=== PATIENT | male | born 1970 | race American Indian/Alaskan Native ===

== ENCOUNTER 2017-03-02 14:10 | Emergency (ER) | payer MEDICAID ==
[2017-03-02 15:16] VITALS: BP 150/97
--- NOTE | 2017-03-02 16:35 | EDM.PDOC ---
Scribed by Xochilt Jules 03/02/17 [id number] for Bharathi Cabrera MD ED HPI GENERAL MEDICAL PROBLEM - General Chief Complaint: ENT Problem Stated Complaint: [id number] BAD EAR ACHE INFECTION IN MOUTH Time Seen by Provider: 03/02/17 16:18 Source of Information: Reports: Patient, RN, RN Notes Reviewed History Limitations: Reports: No Limitations - History of Present Illness INITIAL COMMENTS - FREE TEXT/NARRATIVE: Patient presents with canker sores in mouth and on lips that began one day after waking with fever and chills. No fever or chills since that one episode 4 days ago. Denies sore throat. Location: Reports: Other (mouth and lips) Quality: Reports: Ache Severity: Moderate Improves with: Reports: None Worsens with: Reports: None Associated Symptoms: Reports: No Other Symptoms Oral/Mouth Pain Score (Numeric/FACES): 6 - Related Data Allergies Allergy/AdvReac Type Severity Reaction Status Date / Time No Known Allergies Allergy Verified 04/30/13 14:52 Home Meds: Home Meds . [No Known Home Meds] 04/30/13 [History] Past Medical History - Past Health History Medical/Surgical History: Denies Medical/Surgical History - Past Surgical History GI Surgical History: Reports: Appendectomy Social & Family History - Tobacco Use Smoking Status *Q: Current Every Day Smoker Years of Tobacco use: 20 Packs/Tins Daily: 0.5 Second Hand Smoke Exposure: Yes - Caffeine Use Caffeine Use: Reports: Coffee, Energy Drinks, Soda, Tea - Alcohol Use Days Per Week of Alcohol Use: 0 - Recreational Drug Use Recreational Drug Use: No - Living Situation & Occupation Living situation: Reports: , with Family Occupation: Employed ED ROS ENT - Review of Systems Review Of Systems: ROS reveals no pertinent complaints other than HPI. ED EXAM, ENT - Physical Exam Exam: See Below Exam Limited By: No Limitations General Appearance: Alert, WD/WN, No Apparent Distress Eye Exam: Bilateral Eye: Normal Inspection Ears: Normal External Exam, Normal Canal, Hearing Grossly Normal, Normal TMs Nose: Normal Inspection Mouth/Throat: Other (oral and lower lip apthous ulcers.) Head: Atraumatic, Normocephalic Neck: Full Range of Motion, Other (shoddy cervical lymphadenopathy. No nuchal rigidity.) Respiratory/Chest: No Respiratory Distress, Lungs Clear, Normal Breath Sounds, No Accessory Muscle Use, Chest Non-Tender Cardiovascular: Normal Peripheral Pulses, Regular Rate, Rhythm, No Edema, No Gallop, No JVD, No Murmur, No Rub GI/Abdominal: Normal Bowel Sounds, Soft, Non-Tender, No Organomegaly, No Distention, No Abnormal Bruit, No Mass (Male) Exam: Deferred Rectal (Males) Exam: Deferred Neurological: Alert, Oriented, CN II-XII Intact, Normal Cognition, Normal Gait, Normal Reflexes, No Motor/Sensory Deficits Psychiatric: Normal Affect, Normal Mood Skin: Warm, Dry, Intact, Normal Color, No Rash Course - Vital Signs Last Recorded V/S: Last Vital Signs Temp 36.9 C 03/02/17 15:15 Pulse 110 H 03/02/17 15:15 Resp 16 03/02/17 15:15 BP 150/97 H 03/02/17 15:15 Pulse Ox 97 03/02/17 15:15 Departure - Departure Time of Disposition: 16:19 Disposition: Home, Self-Care 01 Condition: Good Clinical Impression: Gingivostomatitis - Discharge Information Instructions: Primary Herpetic Gingivostomatitis, Pediatric Forms: ED Department Discharge Additional Instructions: RX: Magic Mouthwash. Salt water swish and spit after eating and drinking. Over the counter Ibuprofen 200mg, 3 tablets by mouth every 6 hours as needed for pain and inflammation. Follow in clinic if not improved in 7 days. I have read and agree with the documentation that has been completed regarding this visit. By signing this record, I attest that the documentation was completed in my physical presence and is an accurate record of the encounter.
== END 2017-03-02 16:37 | disposition home or self-care (01) ==
LOC: DL.ED 14:10
DX: K05.10 Chronic gingivitis, plaque induced (principal); K12.0 Recurrent oral aphthae; F17.210 Nicotine dependence, cigarettes, uncomplicated
CPT/HCPCS: 99282

== ENCOUNTER 2019-07-03 06:29 | Emergency (ER) | payer MEDICAID, OTHER ==
[2019-07-03 06:36] VITALS: BP 139/86; PULSE 92
[2019-07-03] MEDS ORDERED: Sodium Chloride 0.9% 10 ML Syringe FLUSH PRN (06:38)
--- NOTE | 2019-07-03 06:43 | EDM.PDOC ---
<Dimple Sanchez - Last Filed: 07/03/19 06:38> ED HPI GENERAL MEDICAL PROBLEM - General Chief Complaint: Lower Extremity Injury/Pain Stated Complaint: AMBULANCE Time Seen by Provider: 07/03/19 06:29 Source of Information: Reports: Patient, EMS, EMS Notes Reviewed, RN, RN Notes Reviewed History Limitations: Reports: No Limitations - History of Present Illness INITIAL COMMENTS - FREE TEXT/NARRATIVE: Patient presents to ER per [facility] ambulance service with complaint of dizziness and throbbing leg pain. Patient states he woke up and felt very dizzy , states he tried to get up and felt his legs had an 8/10 throbbing pain. Patient states this is happened to him in the past. Patient did states this past winter he had an episode similar to this and blacked out. Patient denies any health problems, cardiac history, stroke history. Patient denies taking any medications on a daily basis. Patient admits to being a smoker. Denies chest pains, shortness of breath, and/V/D, fever or chills. Onset: Today, Sudden Bilateral Lower Leg Pain Score (Numeric/FACES): 8 - Related Data Allergies Allergy/AdvReac Type Severity Reaction Status Date / Time No Known Allergies Allergy Verified 07/03/19 06:36 Home Meds: Home Meds . [No Known Home Meds] 04/30/13 [History] Past Medical History - Past Health History Medical/Surgical History: Denies Medical/Surgical History - Past Surgical History GI Surgical History: Reports: Appendectomy Social & Family History - Caffeine Use Caffeine Use: Reports: Coffee, Energy Drinks, Soda, Tea - Living Situation & Occupation Living situation: Reports: , with Family Occupation: Employed Review of Systems - Review of Systems Review Of Systems: Comprehensive ROS is negative, except as noted in HPI. ED EXAM, GENERAL - Physical Exam Exam: See Below Exam Limited By: No Limitations General Appearance: Alert, WD/WN, Mild Distress Eye Exam: Bilateral Eye: EOMI, Normal Inspection Ears: Normal External Exam, Hearing Grossly Normal Nose: Normal Inspection Throat/Mouth: Normal Inspection, Normal Voice, No Airway Compromise Head: Atraumatic, Normocephalic Neck: Normal Inspection, Supple, Non-Tender, Full Range of Motion Respiratory/Chest: No Respiratory Distress, Lungs Clear, Normal Breath Sounds, No Accessory Muscle Use, Chest Non-Tender Cardiovascular: Normal Peripheral Pulses, Regular Rate, Rhythm, No Edema, No Gallop, No JVD, No Murmur, No Rub Peripheral Pulses: 2+: Radial (L), Radial (R) GI/Abdominal: Normal Bowel Sounds, Soft, Non-Tender (Male) Exam: Deferred Rectal (Males) Exam: Deferred Back Exam: Normal Inspection, Full Range of Motion Extremities: Normal Inspection, Non-Tender, No Pedal Edema, Normal Capillary Refill, Leg Pain (8/10 throbbing pain to the legs bilaterally), Limited Range of Motion Neurological: Alert, Oriented, Normal Cognition, Normal Reflexes, No Motor/ Sensory Deficits Psychiatric: Normal Affect, Normal Mood Skin Exam: Warm, Dry, Intact, Normal Color, No Rash Lymphatic: No Adenopathy Course - Vital Signs Last Recorded V/S: Last Vital Signs Temp 99.1 F 07/03/19 06:29 Pulse 92 07/03/19 06:29 Resp 20 07/03/19 06:29 BP 139/86 07/03/19 06:29 Pulse Ox 99 07/03/19 06:29 Orthostatic Blood Pressure [ 133/85 Standing] Orthostatic Blood Pressure [ 131/81 Sitting] Orthostatic Blood Pressure [ 138/84 Supine] - Orders/Labs/Meds Orders: Active Orders 24 hr Category Date Time Status EKG Documentation Completion [RC] STAT Care 07/03/19 06:38 Active Peripheral IV Care [RC] . DIRECTED Care 07/03/19 06:39 Active Chest 1V Frontal [CR] Stat Exams 07/03/19 06:38 Taken DRUG SCREEN URINE BIORAD [URCHEM] Stat Lab 07/03/19 06:39 Ordered Sodium Chloride 0.9% [Saline Flush] Med 07/03/19 06:38 Active 10 ml FLUSH ASDIRECTED PRN Peripheral IV Insertion Adult [OM.PC] Stat Oth 07/03/19 06:38 Ordered Medication Orders Sodium Chloride (Saline Flush) 10 ml FLUSH ASDIRECTED PRN PRN Reason: Keep Vein Open Last Admin: 07/03/19 06:58 Dose: 10 ml Labs: Laboratory Tests 07/03/19 07/03/19 07/03/19 Range/Units 06:42 06:42 06:42 WBC 13.7 H (5.0-10.0) 10^3/uL RBC 4.95 (4.6-6.2) 10^6/uL Hgb 15.2 (14.0-18.0) g/dL Hct 45.7 (40.0-54.0) % MCV 92.3 (80-100) fL MCH 30.7 (27.0-34.0) pg MCHC 33.3 (33.0-35.0) g/dL Plt Count 268 (150-450) 10^3/uL Neut % (Auto) 83.3 H (42.2-75.2) % Lymph % (Auto) 8.6 L (20.5-50.1) % [place] % (Auto) 7.1 (2-8) % Eos % (Auto) 0.9 L (1.0-3.0) % Baso % (Auto) 0.1 (0.0-1.0) % D-Dimer, Quantitative 168 (0-400) ng/mL Sodium 139 (136-145) mmol/L Potassium 3.8 (3.5-5.1) mmol/L Chloride 103 (98-107) mmol/L Carbon Dioxide 31 (21-32) mmol/L Anion Gap 8.8 (7-13) mEq/L BUN 15 (7-18) mg/dL Creatinine 1.07 (0.70-1.30) mg/dL Est Cr Clr Drug Dosing TNP Estimated GFR (MDRD) > 60 BUN/Creatinine Ratio 14.0 (No establ ref range) Glucose 119 H (74-99) mg/dL Calcium 8.3 L (8.5-10.1) mg/dL Magnesium (1.8-2.4) mg/dL Total Bilirubin 0.6 (0.2-1.0) mg/dL AST 54 H (15-37) U/L ALT 123 H (16-63) U/L Alkaline Phosphatase 100 (46-116) U/L Troponin I < 0.017 (0.000-0.056) ng/mL Total Protein 7.6 (6.4-8.2) g/dL Albumin 3.5 (3.4-5.0) g/dL Globulin 4.1 Albumin/Globulin Ratio 0.9 Ethyl Alcohol < 3 (0) mg/dL 07/03/19 Range/Units 06:42 WBC (5.0-10.0) 10^3/uL RBC (4.6-6.2) 10^6/uL Hgb (14.0-18.0) g/dL Hct (40.0-54.0) % MCV (80-100) fL MCH (27.0-34.0) pg MCHC (33.0-35.0) g/dL Plt Count (150-450) 10^3/uL Neut % (Auto) (42.2-75.2) % Lymph % (Auto) (20.5-50.1) % [place] % (Auto) (2-8) % Eos % (Auto) (1.0-3.0) % Baso % (Auto) (0.0-1.0) % D-Dimer, Quantitative (0-400) ng/mL Sodium (136-145) mmol/L Potassium (3.5-5.1) mmol/L Chloride (98-107) mmol/L Carbon Dioxide (21-32) mmol/L Anion Gap (7-13) mEq/L BUN (7-18) mg/dL Creatinine (0.70-1.30) mg/dL Est Cr Clr Drug Dosing Estimated GFR (MDRD) BUN/Creatinine Ratio (No establ ref range) Glucose (74-99) mg/dL Calcium (8.5-10.1) mg/dL Magnesium 2.0 (1.8-2.4) mg/dL Total Bilirubin (0.2-1.0) mg/dL AST (15-37) U/L ALT (16-63) U/L Alkaline Phosphatase (46-116) U/L Troponin I (0.000-0.056) ng/mL Total Protein (6.4-8.2) g/dL Albumin (3.4-5.0) g/dL Globulin Albumin/Globulin Ratio Ethyl Alcohol (0) mg/dL Meds: Medications Generic Name Dose Route Start Last Admin Trade Name Freq PRN Reason Stop Dose Admin Sodium Chloride 10 ml 07/03/19 06:38 07/03/19 06:58 Saline Flush FLUSH 10 ml ASDIRECTED PRN Administration Keep Vein Open Departure - Departure Disposition: Home, Self-Care 01 Clinical Impression: Vasovagal near syncope, Elevated liver enzymes - Discharge Information Instructions: Near-Syncope, [id number], Fatty Liver Disease, Nonalcoholic Fatty Liver Disease Diet Forms: ED Department Discharge Additional Instructions: Follow up in clinic this week for recheck and further evaluation of vasovagal near syncope, and elevated liver enzymes. Sepsis Event Note - Evaluation Sepsis Screening Result: No Definite Risk - Focused Exam Vital Signs: Vital Signs Temp Pulse Resp BP Pulse Ox 07/03/19 06:29 99.1 F 92 20 139/86 99 Date Exam was Performed: 07/03/19 Time Exam was Performed: 06:38 <Bharathi Cabrera - Last Filed: 07/03/19 08:08> ED HPI GENERAL MEDICAL PROBLEM - History of Present Illness INITIAL COMMENTS - FREE TEXT/NARRATIVE: I assumed care of the pt from Dimple Sanchez NP at 0700HR shift change with pt resting comfortably, symptom free, and awaiting lab results. No changes to CC/ HPI, Hx, ROS, or exam as documented by Dimple for this encounter. Pt describes his dizziness as his vision "coning down" with darkness as if he was only able to see through a small hole in a black wall, but he did not completely faint. He also felt hot and flushed when this happened. Social & Family History - Family History Family Medical History: Noncontributory - Tobacco Use Smoking Status *Q: Current Every Day Smoker Tobacco Use Within Last Twelve Months: Cigarettes Review of Systems - Review of Systems Review Of Systems: Comprehensive ROS is negative, except as noted in HPI. ED EXAM, GENERAL - Physical Exam Exam: See Below Exam Limited By: No Limitations General Appearance: Alert, WD/WN, No Apparent Distress Eye Exam: Bilateral Eye: EOMI, Normal Inspection (No nystagmus, no scleral icterus.), PERRL Ears: Normal External Exam, Hearing Grossly Normal Nose: Normal Inspection, Normal Mucosa, No Blood Throat/Mouth: Normal Inspection, Normal Lips, Normal Teeth, Normal Gums, Normal Oropharynx, Normal Voice, No Airway Compromise Head: Atraumatic, Normocephalic Neck: Normal Inspection, Supple, Non-Tender, Full Range of Motion Respiratory/Chest: No Respiratory Distress, Lungs Clear, Normal Breath Sounds, No Accessory Muscle Use, Chest Non-Tender Cardiovascular: Normal Peripheral Pulses, Regular Rate, Rhythm, No Edema, No Gallop, No JVD, No Murmur, No Rub GI/Abdominal: Normal Bowel Sounds, Soft, Non-Tender, No Organomegaly, No Distention, No Abnormal Bruit, No Mass Back Exam: Normal Inspection, Full Range of Motion, NT Extremities: Normal Inspection, Normal Range of Motion, Non-Tender, No Pedal Edema, Normal Capillary Refill. No: Joint Swelling, Arm Pain, Sherine's Sign, Increased Warmth, Mottled, Pallor, Redness Neurological: Alert, Oriented, CN II-XII Intact, Normal Cognition, Normal Gait, No Motor/Sensory Deficits Psychiatric: Normal Affect, Normal Mood Skin Exam: Warm, Dry, Intact, Normal Color, No Rash Lymphatic: No Adenopathy EKG INTERPRETATION EKG Date: 07/03/19 Time: 06:48 Rhythm: NSR Rate (Beats/Min): 95 [place]: Normal P-Wave: Present QRS: Normal ST-T: Normal QT: Normal TX/PQ Interval: Normal TX interval. Comparison: NA - No Prior EKG Course - Radiology Interpretation Free Text/Narrative:: [facility] - [facility] Final Radiology Report Call: [phone] assistance Online chat: [email or web address] Name: KYLER MANN Age: 49Years M Date: 07/03/2019 SSN: -- : [id number] Study: XR CHEST 1 VIEW FRONTAL Requesting Physician: Dimple Sanchez Images: 1 Addl Studies: Provided Clinical History: Contrast: Contrast Medium: Contrast Amount: Contrast Method: CONFIDENTIALITY STATEMENT This report is intended only for use by the referring physician, and only in accordance with law. If you received this in error, call [phone]. Page 1 of 1 PROCEDURE INFORMATION: Exam: XR Chest, 1 View Exam date and time: 07/03/2019 6:58 AM Age: 49 years old Clinical indication: Chest pain TECHNIQUE: Imaging protocol: XR of the chest Views: 1 view. COMPARISON: No relevant prior studies available. FINDINGS: Lungs: No lung consolidation or pulmonary edema. Pleural space: No pleural effusion or pneumothorax. Heart/Mediastinum: The cardiac silhouette is not enlarged. The mediastinal contours are normal. Bones/joints: No acute osseous abnormality. IMPRESSION: No acute abnormality. Thank you for allowing us to participate in the care of your patient. Dictated and Authenticated by: Kyle Renee MD 07/03/2019 7:02 AM Central Time ([place] & [place]) Departure - Departure Time of Disposition: 08:06 Condition: Good - Discharge Information *PRESCRIPTION DRUG MONITORING PROGRAM REVIEWED*: Not Applicable *COPY OF PRESCRIPTION DRUG MONITORING REPORT IN PATIENT EMILIANO: Not Applicable Sepsis Event Note - Focused Exam Date Exam was Performed: 07/03/19 Time Exam was Performed: 08:02
[2019-07-03 07:09] LABS: ANION GAP 8.8 mEq/L (7-13); CHLORIDE,CL 103 mmol/L (98-107); SODIUM,NA 139 mmol/L (136-145)
== END 2019-07-03 08:11 | disposition home or self-care (01) ==
LOC: DL.ED 06:29
DX: R55 Syncope and collapse (principal); R74.8 Abnormal levels of other serum enzymes; M79.604 Pain in right leg; M79.605 Pain in left leg
CPT/HCPCS: 36415; 71045; 80053; 80307; 83735; 84484; 85025; 85379; 93005; 99284-25

== ENCOUNTER 2019-11-18 16:01 | Emergency (ER) | payer MEDICAID, OTHER ==
[2019-11-18 17:26] VITALS: BP 160/94; PULSE 91
[2019-11-18 17:56] LABS: ANION GAP 15.8 mEq/L (7-13); CHLORIDE,CL 106 mmol/L (98-107); SODIUM,NA 141 mmol/L (136-145)
== END 2019-11-18 19:06 | disposition left against medical advice (07) ==
LOC: DL.ED 16:01
DX: Z53.21 Procedure and treatment not carried out due to patient leaving prior to being seen by health care provider (principal)
CPT/HCPCS: 36415; 80053; 83605; 84550; 85025; 87040

== ENCOUNTER 2019-11-21 12:03 | Inpatient (IN) | payer MEDICAID, OTHER ==
[2019-11-21 13:13] LABS: ANION GAP 12.6 mEq/L (7-13); CHLORIDE,CL 97 mmol/L (98-107); SODIUM,NA 135 mmol/L (136-145)
[2019-11-21] MEDS: Sodium Chloride 0.9% 10 ML Syringe FLUSH PRN ×2 (13:16→14:37)
[2019-11-21] MEDS ORDERED: fentaNYL 100 MCG/2 ML SDV IVPUSH ONE (14:22)
[2019-11-21] MEDS ORDERED: cefTRIAXone 1 GM in Sodium Chloride 0.9% 50 ML IV ONE (14:23)
--- NOTE | 2019-11-21 14:26 | CR ---
EXAMINATION: Foot Comp Min 3V Rt SEX: Male AGE: 49 years CLINICAL HISTORY: 49-year-old male one week history bilateral FOOT SWELLING i.e. cellulitis (r/o osteomyelitis). No known trauma. INTERPRETATION: (3 views each foot) 1. Soft tissue swelling (STS) over the dorsum of the right foot. 2. Bilateral pes cavus and large heel spurs (R>L) at the insertion plantar aponeurosis/Achilles tendons. 3. No foreign bodies. No subcutaneous emphysema. No inflammatory periostitis. 4. Prominent os peroneum, bilaterally. 5. Atavistic first cuneiform with early (mild) reactive arthritic changes first metatarsophalangeal joints. CONCLUSION: No plain film evidence of fracture, dislocation or osteomyelitis.
[2019-11-21] MEDS ORDERED: Sodium Chloride 0.9% 1,000 ML IV ONE (14:41)
--- NOTE | 2019-11-21 14:47 | EDM.PDOC ---
ED HPI GENERAL MEDICAL PROBLEM - General Chief Complaint: Lower Extremity Injury/Pain Time Seen by Provider: 11/21/19 13:32 Source of Information: Reports: Patient, EMS, EMS Notes Reviewed, RN, RN Notes Reviewed History Limitations: Reports: No Limitations - History of Present Illness INITIAL COMMENTS - FREE TEXT/NARRATIVE: Patient presents to ER per [place] [facility] with complaint of pain to the feet bilaterally. Patient states the pain began approximately 1 week ago and has progressively gotten worse. Patient denies any trauma to the feet. States he is unable to walk or stand, rates pain 10/10. Patient denies diabetes, or any other health problems. Patient states he was helping his sister about a week ago with some erica, and states it began after that. Denies fever, chills, nausea, vomiting, diarrhea. Onset: Gradual Right Lower Foot Pain Score (Numeric/FACES): 10 - Related Data Allergies Allergy/AdvReac Type Severity Reaction Status Date / Time No Known Allergies Allergy Verified 11/21/19 15:59 Home Meds: Home Meds . [No Known Home Meds] 04/30/13 [History] Past Medical History - Past Health History Medical/Surgical History: Denies Medical/Surgical History HEENT History: Reports: None Cardiovascular History: Reports: None Respiratory History: Reports: None Gastrointestinal History: Reports: None Genitourinary History: Reports: None Musculoskeletal History: Reports: None Neurological History: Reports: None Psychiatric History: Reports: None Endocrine/Metabolic History: Reports: None Hematologic History: Reports: None Immunologic History: Reports: None Oncologic (Cancer) History: Reports: None Dermatologic History: Reports: None - Infectious Disease History Infectious Disease History: Reports: None - Past Surgical History Head Surgeries/Procedures: Reports: None GI Surgical History: Reports: Appendectomy Social & Family History - Family History Family Medical History: Noncontributory - Tobacco Use Smoking Status *Q: Current Every Day Smoker Years of Tobacco use: 20 Packs/Tins Daily: 1 - Caffeine Use Caffeine Use: Reports: Coffee, Energy Drinks, Soda, Tea - Recreational Drug Use Recreational Drug Use: No - Living Situation & Occupation Living situation: Reports: , with Family Occupation: Employed Review of Systems - Review of Systems Review Of Systems: Comprehensive ROS is negative, except as noted in HPI. ED EXAM, GENERAL - Physical Exam Exam: See Below Exam Limited By: No Limitations General Appearance: Alert, WD/WN, Moderate Distress Eye Exam: Bilateral Eye: EOMI, Normal Inspection Ears: Normal External Exam, Hearing Grossly Normal Nose: Normal Inspection Throat/Mouth: Normal Inspection, Normal Voice, No Airway Compromise Head: Atraumatic, Normocephalic Neck: Normal Inspection, Supple, Non-Tender, Full Range of Motion Respiratory/Chest: No Respiratory Distress, Lungs Clear, Normal Breath Sounds, No Accessory Muscle Use, Chest Non-Tender Cardiovascular: Normal Peripheral Pulses, Regular Rate, Rhythm, No Edema, No Gallop, No JVD, No Murmur, No Rub Peripheral Pulses: 1+: Dorsalis Pedis (L), Dorsalis Pedis (R), 2+: Radial (L), Radial (R) GI/Abdominal: Normal Bowel Sounds, Soft, Non-Tender (Male) Exam: Deferred Rectal (Males) Exam: Deferred Back Exam: Normal Inspection, Full Range of Motion, NT Extremities: Pedal Edema (Adderall), Increased Warmth (Feet bilateral), Redness (Feet bilateral), Other (Severe pain to the feet bilaterally) Neurological: Alert, Oriented, CN II-XII Intact, Normal Cognition, No Motor/Sensory Deficits Psychiatric: Anxious Skin Exam: Warm, Dry, Intact, Normal Color, No Rash, Erythema (Bilaterally), Increased Warmth (Feet bilaterally) Lymphatic: No Adenopathy Course - Vital Signs Last Recorded V/S: Last Vital Signs Temp 100.4 F 11/21/19 20:51 Pulse 90 11/21/19 20:51 Resp 16 11/21/19 20:51 BP 144/89 H 11/21/19 20:51 Pulse Ox 97 11/21/19 20:51 - Orders/Labs/Meds Orders: Active Orders 24 hr Category Date Time Status Foot Comp Min 3V Lt [CR] Urgent Exams 11/21/19 13:38 Taken CULTURE BLOOD [BC] Stat Lab 11/21/19 12:59 Received CULTURE BLOOD [BC] Stat Lab 11/21/19 12:59 Received Blood Culture x2 Reflex Set [OM.PC] Stat Oth 11/21/19 12:31 Ordered Peripheral IV Insertion Adult [OM.PC] Stat Oth 11/21/19 12:30 Ordered Medication Orders Acetaminophen (Tylenol) 650 mg PO Q4H PRN PRN Reason: Pain (Mild 1-3)/fever Last Admin: 11/21/19 20:49 Dose: 650 mg Documented by: Admin: 11/21/19 16:24 Dose: 650 mg Documented by: TWAN Hydrocodone Bitart/Acetaminophen ([place] 325-10 Mg) 1 tab PO Q4H PRN PRN Reason: Pain (moderate 4-6) Last Admin: 11/22/19 03:39 Dose: 1 tab Documented by: Admin: 11/21/19 18:16 Dose: 1 tab Documented by: TWAN Docusate Sodium (Colace) 100 mg PO BID PRN PRN Reason: Constipation Enoxaparin Sodium (Lovenox) 40 mg SUBCUT DAILY [facility] Piperacillin Sod/Tazobactam (Sod 3.375 gm/ Sodium Chloride) 100 mls @ 200 mls/hr IV Q6HR [facility] Last Infusion: 11/22/19 06:23 Dose: 200 mls/hr Documented by: Admin: 11/22/19 05:49 Dose: 200 mls/hr Documented by: Infusion: 11/21/19 23:59 Dose: 200 mls/hr Documented by: Admin: 11/21/19 23:25 Dose: 200 mls/hr Documented by: Infusion: 11/21/19 18:47 Dose: 200 mls/hr Documented by: Admin: 11/21/19 18:17 Dose: 200 mls/hr Documented by: TWAN Sodium Chloride (Normal Saline) 1,000 mls @ 125 mls/hr IV ASDIRECTED [facility] Last Admin: 11/22/19 03:27 Dose: 125 mls/hr Documented by: Infusion: 11/22/19 00:24 Dose: 125 mls/hr Documented by: Admin: 11/21/19 16:24 Dose: 125 mls/hr Documented by: TWAN Vancomycin HCl 1.25 gm/ Sodium (Chloride) 250 mls @ 166.667 mls/hr IV Q8H [facility] Last Infusion: 11/22/19 05:53 Dose: 166 mls/hr Documented by: Admin: 11/22/19 00:00 Dose: 166.667 mls/hr Documented by: Infusion: 11/21/19 17:54 Dose: 166.667 mls/hr Documented by: Admin: 11/21/19 16:24 Dose: 166.667 mls/hr Documented by: TWAN Miscellaneous Information (Check Patch) 1 ea TRDERM BEDTIME [facility] Morphine Sulfate (Morphine) 4 mg IVPUSH Q4H PRN PRN Reason: Pain Last Admin: 11/22/19 05:45 Dose: 4 mg Documented by: Admin: 11/22/19 01:46 Dose: 4 mg Documented by: BRANDI Nicotine (Habitrol) 14 mg TRDERM DAILY [facility] Ondansetron HCl (Zofran Odt) 4 mg PO Q4H PRN PRN Reason: nausea, able to take PO Last Admin: 11/21/19 16:24 Dose: 4 mg Documented by: TWAN Vancomycin HCl (Pharmacy To Dose - Vancomycin) 0 dose .XX ASDIRECTED [facility] Labs: Laboratory Tests 11/21/19 11/21/19 11/21/19 Range/Units 12:35 12:35 12:59 WBC 15.4 H (5.0-10.0) 10^3/uL RBC 5.30 (4.6-6.2) 10^6/uL Hgb 16.0 D (14.0-18.0) g/dL Hct 47.7 (40.0-54.0) % MCV 90.0 (80-100) fL MCH 30.2 (27.0-34.0) pg MCHC 33.5 (33.0-35.0) g/dL Plt Count 379 D (150-450) 10^3/uL Neut % (Auto) 79.4 H (42.2-75.2) % Lymph % (Auto) 9.6 L (20.5-50.1) % Camp % (Auto) 10.4 H (2-8) % Eos % (Auto) 0.2 L (1.0-3.0) % Baso % (Auto) 0.4 (0.0-1.0) % Add Manual Diff Yes Neutrophils % (Manual) 75 (42-75) % Band Neutrophils % 1 % Lymphocytes % (Manual) 8 L (20-50) % Monocytes % (Manual) 12 H (2-8) % Basophils % (Manual) 1 Metamyelocytes % 3 Sodium 135 L (136-145) mmol/L Potassium 3.6 (3.5-5.1) mmol/L Chloride 97 L (98-107) mmol/L Carbon Dioxide 29 (21-32) mmol/L Anion Gap 12.6 (7-13) mEq/L BUN 16 (7-18) mg/dL Creatinine 0.94 (0.70-1.30) mg/dL Est Cr Clr Drug Dosing 103.47 mL/min Estimated GFR (MDRD) > 60 BUN/Creatinine Ratio 17.0 (No establ ref range) Glucose 179 H (74-99) mg/dL Lactic Acid 2.1 H* (0.4-2.0) mmol/L Calcium 9.1 (8.5-10.1) mg/dL Total Bilirubin 1.3 H (0.2-1.0) mg/dL AST 22 (15-37) U/L ALT 78 H (16-63) U/L Alkaline Phosphatase 91 (46-116) U/L Total Protein 8.5 H (6.4-8.2) g/dL Albumin 2.7 L (3.4-5.0) g/dL Globulin 5.8 Albumin/Globulin Ratio 0.47 Meds: Medications Generic Name Dose Route Start Last Admin Trade Name Phillipq PRN Reason Stop Dose Admin Acetaminophen 650 mg 11/21/19 16:02 11/21/19 20:49 Tylenol PO 650 mg Q4H PRN Administration Pain (Mild 1-3)/fever Hydrocodone Bitart/Acetaminophen 1 tab 11/21/19 16:02 11/22/19 03:39 [place] 325-10 Mg PO 1 tab Q4H PRN Administration Pain (moderate 4-6) Docusate Sodium 100 mg 11/21/19 16:02 Colace PO BID PRN Constipation Enoxaparin Sodium 40 mg 11/22/19 09:00 Lovenox SUBCUT DAILY [facility] Piperacillin Sod/Tazobactam 100 mls @ 200 mls/hr 11/21/19 18:00 11/22/19 06:23 Sod 3.375 gm/ Sodium Chloride IV Infused Q6HR [facility] Infusion Sodium Chloride 1,000 mls @ 125 mls/hr 11/21/19 16:15 11/22/19 03:27 Normal Saline IV 125 mls/hr ASDIRECTED [facility] Administration Vancomycin HCl 1.25 gm/ Sodium 250 mls @ 166.667 mls/hr 11/21/19 16:00 11/22/19 05:53 Chloride IV Infused Q8H [facility] Infusion Miscellaneous Information 1 ea 11/22/19 21:00 Check Patch TRDERM BEDTIME [facility] Morphine Sulfate 4 mg 11/21/19 22:33 11/22/19 05:45 Morphine IVPUSH 4 mg Q4H PRN Administration Pain Nicotine 14 mg 11/22/19 09:00 Habitrol TRDERM DAILY [facility] Ondansetron HCl 4 mg 11/21/19 16:02 11/21/19 16:24 Zofran Odt PO 4 mg Q4H PRN Administration nausea, able to take PO Vancomycin HCl 0 dose 11/21/19 16:00 Pharmacy To Dose - Vancomycin .XX ASDIRECTED [facility] Discontinued Medications Generic Name Dose Route Start Last Admin Trade Name Freq PRN Reason Stop Dose Admin Acetaminophen 650 mg 11/21/19 15:48 Tylenol PO Q4H PRN Pain (Mild 1-3)/fever Hydrocodone Bitart/Acetaminophen 1 tab 11/21/19 15:48 [place] 325-10 Mg PO Q4H PRN Pain (moderate 4-6) Docusate Sodium 100 mg 11/21/19 15:48 Colace PO BID PRN Constipation Enoxaparin Sodium 40 mg 11/22/19 09:00 Lovenox SUBCUT DAILY [facility] Fentanyl 50 mcg 11/21/19 14:22 11/21/19 14:37 Sublimaze IVPUSH 11/21/19 14:23 50 mcg ONETIME ONE Administration Ceftriaxone Sodium 1 gm/ 50 mls @ 100 mls/hr 11/21/19 14:23 11/21/19 14:40 Sodium Chloride IV 11/21/19 14:52 100 mls/hr ONETIME ONE Administration Sodium Chloride 1,000 mls @ 999 mls/hr 11/21/19 14:41 11/21/19 14:43 Normal Saline IV 11/21/19 15:41 999 mls/hr .BOLUS ONE Administration Sodium Chloride 1,000 mls @ 125 mls/hr 11/21/19 16:00 Normal Saline IV ASDIRECTED [facility] Piperacillin Sod/Tazobactam 100 mls @ 200 mls/hr 11/21/19 16:00 Sod 3.375 gm/ Sodium Chloride IV Q6H [facility] Morphine Sulfate 2 mg 11/21/19 15:48 Morphine IVPUSH Q2H PRN Pain (severe 7-10) Morphine Sulfate 2 mg 11/21/19 16:02 11/21/19 20:50 Morphine IVPUSH 2 mg Q2H PRN Administration Pain (severe 7-10) Morphine Sulfate 2 mg 11/21/19 21:22 11/21/19 21:30 Morphine IVPUSH 11/21/19 21:23 2 mg ONETIME ONE Administration Nicotine 14 mg 11/22/19 09:00 Habitrol TRDERM DAILY [facility] Ondansetron HCl 4 mg 11/21/19 15:48 Zofran Odt PO Q4H PRN nausea, able to take PO Sodium Chloride 10 ml 11/21/19 12:30 11/21/19 14:37 Saline Flush FLUSH 10 ml ASDIRECTED PRN Administration Keep Vein Open Vancomycin HCl 1 dose 11/21/19 16:00 Pharmacy To Dose - Vancomycin .XX ASDIRECTED [facility] - Re-Assessments/Exams Free Text/Narrative Re-Assessment/Exam: 11/21/19 15:21 Discussed patient case with Dr. Levin who agreed to accept the patient for inpatient admission. Departure - Departure Time of Disposition: 15:39 Disposition: Admitted As Inpatient 68 Condition: Fair Clinical Impression: Cellulitis Qualifiers: Site of cellulitis: extremity Site of cellulitis of extremity: lower extremity Laterality: unspecified laterality Qualified Code(s): L03.119 - Cellulitis of unspecified part of limb - Discharge Information *PRESCRIPTION DRUG MONITORING PROGRAM REVIEWED*: No *COPY OF PRESCRIPTION DRUG MONITORING REPORT IN PATIENT EMILIANO: No Sepsis Event Note (ED) - Evaluation Sepsis Screening Result: No Definite Risk - My Orders Last 24 Hours: My Active Orders 11/21/19 12:30 Peripheral IV Insertion Adult [OM.PC] Stat 11/21/19 12:31 Blood Culture x2 Reflex Set [OM.PC] Stat 11/21/19 12:59 CULTURE BLOOD [BC] Stat CULTURE BLOOD [BC] Stat 11/21/19 13:38 Foot Comp Min 3V Lt [CR] Urgent - Assessment/Plan Last 24 Hours: My Active Orders 11/21/19 12:30 Peripheral IV Insertion Adult [OM.PC] Stat 11/21/19 12:31 Blood Culture x2 Reflex Set [OM.PC] Stat 11/21/19 12:59 CULTURE BLOOD [BC] Stat CULTURE BLOOD [BC] Stat 11/21/19 13:38 Foot Comp Min 3V Lt [CR] Urgent
[2019-11-21] MEDS ORDERED: Docusate Sodium 100 MG Cap PO PRN ×2 (15:48→16:02)
[2019-11-21] MEDS ORDERED: Acetaminophen/HYDROcodone 325-10 MG Tab PO PRN (15:48)
[2019-11-21] MEDS ORDERED: Acetaminophen 325 MG Tab PO PRN (15:48)
[2019-11-21] MEDS ORDERED: Morphine 2 MG/ML SYRINGE IVPUSH PRN (15:48)
[2019-11-21] MEDS ORDERED: Ondansetron 4 MG Tab.DIS PO PRN ×2 (15:48→16:02)
[2019-11-21] MEDS ORDERED: Piperacillin/Tazobactam 3.375 GM in Sodium Chloride 0.9% 100 ML IV SCH (16:00)
[2019-11-21] MEDS ORDERED: Sodium Chloride 0.9% 1,000 ML IV SCH (16:00)
[2019-11-21] MEDS: Acetaminophen 325 MG Tab PO PRN ×2 (16:24→20:49)
[2019-11-21] MEDS: Morphine 2 MG/ML SYRINGE IVPUSH PRN ×3 (16:24→20:50)
[2019-11-21] MEDS: Acetaminophen/HYDROcodone 325-10 MG Tab PO PRN ×2 (16:24→18:16)
[2019-11-21] MEDS: Sodium Chloride 0.9% 1,000 ML IV SCH (16:24)
[2019-11-21] MEDS: Piperacillin/Tazobactam 3.375 GM in Sodium Chloride 0.9% 100 ML IV SCH ×2 (18:17→23:25)
[2019-11-21] MEDS ORDERED: Morphine 2 MG/ML SYRINGE IVPUSH ONE (21:22)
--- NOTE | 2019-11-21 22:34 | HP ---
CHIEF COMPLAINT: Bilateral lower leg pain. HISTORY OF PRESENT ILLNESS: The patient is a 49-year-old male who was admitted through the emergency room and the patient was brought in by [place] ambulance complaining of pain to the feet bilaterally and these started about a week ago and has progressively gotten worse and now he has swelling and redness of both lower legs. He denies any trauma to the feet and he said he is unable to walk or stand with it because of the pain. He denies any fever, chills, chest pain, shortness of breath, abdominal pain, or any other complaints, and he mentioned that he had been removing some angelo in the erica of his sister about a week ago when this all started. PAST MEDICAL HISTORY: Basically unremarkable. FAMILY HISTORY: Unremarkable. SOCIAL HISTORY: Smokes cigarettes about a [id number]-day. Denies any alcohol abuse or any illicit drug use. HOME MEDICATIONS: None. ALLERGIES: No known drug allergies. REVIEW OF SYSTEMS: As in HPI. The rest of the review of systems is negative. PHYSICAL EXAMINATION: General: The patient is alert and oriented, in moderate distress from the leg pain. Vital Signs: Blood pressure is 160/100, pulse of 104, respirations 20, temperature of 99.7, and saturation is 100% on room air. SHEENT: Normocephalic. There are pink palpebral conjunctivae. Sclerae anicteric. No JVD. No lymphadenopathy. HEART: Regular rate and rhythm. Normal S1 and S2. No gallops. No rubs. LUNGS: Equal bilaterally. No crackles. No wheezing. Abdomen: Soft, nontender. Bowel sounds positive. EXTREMITIES: Remarkable for swelling on both lower extremities and some redness bilaterally, more on the right. LABORATORY DATA: CBC: WBC is 15.4, hemoglobin is 16, hematocrit 47.7, platelet is 379. Neutrophils 79.4. Comp panel, sodium is 135, chloride of 97, total bilirubin of 1.3, ALT of 78. The rest of the panel unremarkable. Lactic acid is 2.1. ADMITTING DIAGNOSIS: Cellulitis of both lower legs. PLAN OF TREATMENT: The patient is going to be admitted to Acute Care General Medicine Floor. He will be empirically started on IV antibiotics, that would also cover MRSA. Blood cultures were sent and the rest of the management as necessary. The patient is a full code. [facility] /[id number]
[2019-11-22] MEDS: Morphine 4 MG/ML Syringe IVPUSH PRN ×5 (01:46→21:28)
[2019-11-22] MEDS: Sodium Chloride 0.9% 1,000 ML IV SCH ×3 (03:27→23:34)
[2019-11-22] MEDS: Acetaminophen/HYDROcodone 325-10 MG Tab PO PRN ×5 (03:39→23:43)
[2019-11-22] MEDS: Piperacillin/Tazobactam 3.375 GM in Sodium Chloride 0.9% 100 ML IV SCH ×4 (05:49→23:31)
[2019-11-22] MEDS ORDERED: Nicotine 14 MG/24 Hr Patch TRDERM SCH (09:00)
[2019-11-22] MEDS ORDERED: Enoxaparin 40 MG/0.4 ML Syringe SUBCUT SCH (09:00)
[2019-11-22] MEDS: Enoxaparin 40 MG/0.4 ML Syringe SUBCUT SCH (09:22)
[2019-11-22] MEDS: Nicotine 14 MG/24 Hr Patch TRDERM SCH (09:22)
[2019-11-22 13:10] LABS: ANION GAP 13.8 mEq/L (7-13); CHLORIDE,CL 101 mmol/L (98-107); SODIUM,NA 136 mmol/L (136-145)
--- NOTE | 2019-11-22 18:23 | PCM.PN ---
- General Info Date of Service: 11/22/19 Subjective Update: Patient seen and examined today. Overnight patient was having significant pain is legs especially the right leg. Right leg and foot is still swollen today. Afebrile overnight. - Review of Systems General: Reports: No Symptoms HEENT: Reports: No Symptoms Pulmonary: Reports: No Symptoms Cardiovascular: Reports: No Symptoms Gastrointestinal: Reports: No Symptoms Genitourinary: Reports: No Symptoms Musculoskeletal: Reports: Leg Pain, Foot Pain Skin: Reports: Rash Neurological: Reports: No Symptoms Psychiatric: Reports: No Symptoms - Patient Data Vitals - Most Recent: Last Vital Signs Temp 99.9 F 11/22/19 16:00 Pulse 96 11/22/19 16:00 Resp 20 11/22/19 16:00 BP 145/82 H 11/22/19 16:00 Pulse Ox 96 11/22/19 16:02 Weight - Most Recent: 190 lb I&O - Last 24 Hours: Intake & Output 11/22/19 11/22/19 11/22/19 06:59 14:59 22:59 Intake Total 2292 2346 256 Output Total 700 1200 1000 Balance 1592 1146 -744 Lab Results Last 24 Hours: Laboratory Results - last 24 hr 11/21/19 11/22/19 11/22/19 Range/Units 17:55 12:35 12:35 WBC 11.0 H (5.0-10.0) 10^3/uL RBC 4.45 L (4.6-6.2) 10^6/uL Hgb 13.5 L D (14.0-18.0) g/dL Hct 40.9 (40.0-54.0) % MCV 91.9 (80-100) fL MCH 30.3 (27.0-34.0) pg MCHC 33.0 (33.0-35.0) g/dL Plt Count 341 (150-450) 10^3/uL Sodium 136 (136-145) mmol/L Potassium 3.8 (3.5-5.1) mmol/L Chloride 101 (98-107) mmol/L Carbon Dioxide 25 (21-32) mmol/L Anion Gap 13.8 H (7-13) mEq/L BUN 13 (7-18) mg/dL Creatinine 0.87 (0.70-1.30) mg/dL Est Cr Clr Drug Dosing 111.80 mL/min Estimated GFR (MDRD) > 60 BUN/Creatinine Ratio 14.9 (No establ ref range) Glucose 140 H (74-99) mg/dL Lactic Acid 2.0 (0.4-2.0) mmol/L Calcium 7.9 L (8.5-10.1) mg/dL Total Bilirubin 0.6 (0.2-1.0) mg/dL AST 30 (15-37) U/L ALT 68 H (16-63) U/L Alkaline Phosphatase 76 (46-116) U/L Total Protein 7.1 (6.4-8.2) g/dL Albumin 2.2 L (3.4-5.0) g/dL Globulin 4.9 Albumin/Globulin Ratio 0.45 Brandon Results Last 24 Hours: Microbiology 11/21/19 12:59 Aerobic Blood Culture - Preliminary Blood - Venous - Lab Draw NO GROWTH AFTER 1 DAY Anaerobic Blood Culture - Preliminary NO GROWTH AFTER 1 DAY 11/21/19 12:59 Aerobic Blood Culture - Preliminary Blood - Venous NO GROWTH AFTER 1 DAY Anaerobic Blood Culture - Preliminary NO GROWTH AFTER 1 DAY Med Orders - Current: Current Medications Acetaminophen (Tylenol) 650 mg PO Q4H PRN PRN Reason: Pain (Mild 1-3)/fever Last Admin: 11/21/19 20:49 Dose: 650 mg Documented by: Hydrocodone Bitart/Acetaminophen ([place] 325-10 Mg) 1 tab PO Q4H PRN PRN Reason: Pain (moderate 4-6) Last Admin: 11/22/19 14:09 Dose: 1 tab Documented by: Docusate Sodium (Colace) 100 mg PO BID PRN PRN Reason: Constipation Enoxaparin Sodium (Lovenox) 40 mg SUBCUT DAILY [facility] Last Admin: 11/22/19 09:22 Dose: 40 mg Documented by: Piperacillin Sod/Tazobactam (Sod 3.375 gm/ Sodium Chloride) 100 mls @ 200 mls/hr IV Q6HR [facility] Last Infusion: 11/22/19 18:00 Dose: Infused Documented by: Sodium Chloride (Normal Saline) 1,000 mls @ 125 mls/hr IV ASDIRECTED [facility] Last Admin: 11/22/19 14:15 Dose: 125 mls/hr Documented by: Vancomycin HCl 1.25 gm/ Sodium (Chloride) 250 mls @ 166.667 mls/hr IV Q8H [facility] Last Infusion: 11/22/19 17:25 Dose: Infused Documented by: Miscellaneous Information (Check Patch) 1 ea TRDERM BEDTIME [facility] Morphine Sulfate (Morphine) 4 mg IVPUSH Q4H PRN PRN Reason: Pain Last Admin: 11/22/19 17:26 Dose: 4 mg Documented by: Nicotine (Habitrol) 14 mg TRDERM DAILY [facility] Last Admin: 11/22/19 09:22 Dose: 14 mg Documented by: Ondansetron HCl (Zofran Odt) 4 mg PO Q4H PRN PRN Reason: nausea, able to take PO Last Admin: 11/21/19 16:24 Dose: 4 mg Documented by: Vancomycin HCl (Pharmacy To Dose - Vancomycin) 0 dose .XX ASDIRECTED [facility] Discontinued Medications Acetaminophen (Tylenol) 650 mg PO Q4H PRN PRN Reason: Pain (Mild 1-3)/fever Hydrocodone Bitart/Acetaminophen ([place] 325-10 Mg) 1 tab PO Q4H PRN PRN Reason: Pain (moderate 4-6) Docusate Sodium (Colace) 100 mg PO BID PRN PRN Reason: Constipation Enoxaparin Sodium (Lovenox) 40 mg SUBCUT DAILY [facility] Fentanyl (Sublimaze) 50 mcg IVPUSH ONETIME ONE Stop: 11/21/19 14:23 Last Admin: 11/21/19 14:37 Dose: 50 mcg Documented by: Ceftriaxone Sodium 1 gm/ (Sodium Chloride) 50 mls @ 100 mls/hr IV ONETIME ONE Stop: 11/21/19 14:52 Last Admin: 11/21/19 14:40 Dose: 100 mls/hr Documented by: Sodium Chloride (Normal Saline) 1,000 mls @ 999 mls/hr IV .BOLUS ONE Stop: 11/21/19 15:41 Last Admin: 11/21/19 14:43 Dose: 999 mls/hr Documented by: Sodium Chloride (Normal Saline) 1,000 mls @ 125 mls/hr IV ASDIRECTED [facility] Piperacillin Sod/Tazobactam (Sod 3.375 gm/ Sodium Chloride) 100 mls @ 200 mls/hr IV Q6H [facility] Morphine Sulfate (Morphine) 2 mg IVPUSH Q2H PRN PRN Reason: Pain (severe 7-10) Morphine Sulfate (Morphine) 2 mg IVPUSH Q2H PRN PRN Reason: Pain (severe 7-10) Last Admin: 11/21/19 20:50 Dose: 2 mg Documented by: Morphine Sulfate (Morphine) 2 mg IVPUSH ONETIME ONE Stop: 11/21/19 21:23 Last Admin: 11/21/19 21:30 Dose: 2 mg Documented by: Nicotine (Habitrol) 14 mg TRDERM DAILY [facility] Ondansetron HCl (Zofran Odt) 4 mg PO Q4H PRN PRN Reason: nausea, able to take PO Sodium Chloride (Saline Flush) 10 ml FLUSH ASDIRECTED PRN PRN Reason: Keep Vein Open Last Admin: 11/21/19 14:37 Dose: 10 ml Documented by: Vancomycin HCl (Pharmacy To Dose - Vancomycin) 1 dose .XX ASDIRECTED [facility] - Exam General: Alert, Oriented HEENT: Pupils Equal, Pupils Reactive, EOMI, Mucous Membr. Moist/[place] Neck: Supple Lungs: Clear to Auscultation, Normal Respiratory Effort Cardiovascular: Regular Rate, Regular Rhythm GI/Abdominal Exam: Normal Bowel Sounds, Soft, Non-Tender, No Organomegaly, No Distention, No Abnormal Bruit, No Mass, Pelvis Stable Back Exam: Normal Inspection, Full Range of Motion Extremities: Other (Right foot stumbling redness, swelling, tenderness and differential warmth.) Skin: Warm, Rash Neurological: No New Focal Deficit Psy/Mental Status: Alert, Normal Affect, Normal Mood Sepsis Event Note - Evaluation Sepsis Screening Result: No Definite Risk - Focused Exam Vital Signs: Vital Signs Temp Pulse Resp BP Pulse Ox Pulse Ox 11/22/19 16:02 96 11/22/19 16:00 99.9 F 96 20 145/82 H 99 11/22/19 15:49 96 11/22/19 12:00 98.8 F 80 18 148/86 H 97 11/22/19 08:00 99.0 F 82 18 149/88 H 96 - Problem List Review Problem List Initiated/Reviewed/Updated: Yes - My Orders Last 24 Hours: My Active Orders 11/21/19 22:33 Morphine 4 mg IVPUSH Q4H PRN - Plan Plan:: Bilateral lower extremity cellulitis. Continue vancomycin and Zosyn Daily CBC Obtain blood culture if fever PRN pain control
[2019-11-22] MEDS: Acetaminophen 325 MG Tab PO PRN (20:39)
[2019-11-23] MEDS: Morphine 4 MG/ML Syringe IVPUSH PRN ×3 (01:45→13:40)
[2019-11-23] MEDS: Piperacillin/Tazobactam 3.375 GM in Sodium Chloride 0.9% 100 ML IV SCH ×2 (06:04→12:58)
[2019-11-23] MEDS: Nicotine 14 MG/24 Hr Patch TRDERM SCH (09:03)
[2019-11-23] MEDS: Enoxaparin 40 MG/0.4 ML Syringe SUBCUT SCH (09:05)
[2019-11-23 09:25] LABS: CHLORIDE,CL 101 mmol/L (98-107); SODIUM,NA 135 mmol/L (136-145)
[2019-11-23] MEDS: Acetaminophen/HYDROcodone 325-10 MG Tab PO PRN ×3 (09:26→17:05)
[2019-11-23] MEDS ORDERED: Ibuprofen 400 MG Tab PO PRN (11:37)
--- NOTE | 2019-11-23 14:50 | MR ---
PROCEDURE INFORMATION: Exam: MR Right Lower Extremity Other Than Joint Without Contrast; Foot Exam date and time: 11/23/2019 1:49 PM Age: 49 years old Clinical indication: Pain; Foot; Right; Additional info: Pain, erythema, swelling of right foot and sepsis. TECHNIQUE: Imaging protocol: MR of the Right lower extremity without contrast. Exam focused on the foot. COMPARISON: CR Foot Comp Min 3V Rt 11/21/2019 1:47 PM FINDINGS: Limitations: Motion artifact. Bones and cartilage: There are small dorsal and plantar calcaneal enthesophytes. There is no evidence of osteomyelitis. The os peroneum accessory ossicle is enlarged but otherwise normal in appearance. Joint spaces: A large effusion involves the ankle joint. A moderate amount of fluid decompresses posteriorly from the subtalar joint. A trace amount of fluid is present in the retrocalcaneal bursa. LIGAMENTS: Lisfranc ligament: Unremarkable. No evidence of tear. TENDONS: Flexor tendons of foot: Unremarkable. No evidence of tear. Tibialis posterior tendon: Moderate tenosynovitis involves the tibialis posterior tendon. Peroneal tendons: Prominent tenosynovitis involves the peroneal tendon sheath. Extensor tendons of foot: Unremarkable. No evidence of tear. Tibialis anterior tendon: Unremarkable as visualized. Tarsal canal (Sinus tarsi): Unremarkable. Tarsal tunnel: Unremarkable. Muscles: Mild edema involves the musculature.. Soft tissues: There is a prominent amount of edema in the subcutaneous fat. There is no soft tissue gas or focal fluid collection in the soft tissues to suggest an abscess. Plantar fascia: The proximal plantar fascia is thickened and has abnormal increased T2 signal. Additionally, edema is present in the surrounding soft tissues. The appearance is consistent with moderate plantar fasciitis (fasciopathy). IMPRESSION: 1. Large ankle joint effusion, which is indeterminate for septic arthritis in the setting of sepsis. 2. Severe subcutaneous edema consistent with cellulitis. 3. No abscess or osteomyelitis. 4. Severe tenosynovitis of the peroneal tendons. 5. Moderate tenosynovitis of the tibialis posterior tendon. 6. Moderate plantar fasciitis (fasciopathy).
--- NOTE | 2019-11-23 16:52 | PCM.DCSUM1 ---
Discharge Summary - Hospital Course Free Text/Narrative:: 44-year-old male who presented with bilateral foot pain, redness and swelling ongoing for about 1 week. Patient had reported doing some erica work at his sister's house 10 days ago. He denied any injury to his feet. Initial labs were significant for lactic acidosis of 2.1 and leukocytosis of 15.4. X-ray showed soft tissue swelling. Patient was treated for bilateral cellulitis of the feet. His left foot improved but his right foot swelling, pain and erythema worsened, showing signs of proximal spread. Patient also developed fever up to 102.2 and tachycardia of 96 despite being on IV vancomycin and Zosyn. Blood cultures are pending. MRI of his right foot showed a large effusion in his ankle joint concerning for septic arthritis; along with diffuse soft tissue swelling. Patient is being transferred to [facility] in [place], [place] for fu rther management. Diagnosis: Stroke: No - Discharge Data Discharge Date: 11/23/19 Discharge Disposition: DC/Tfer to Acute Hospital 02 Condition: Good - Referral to Home Health Primary Care Physician: Dennis Sanches MD - Discharge Plan *PRESCRIPTION DRUG MONITORING PROGRAM REVIEWED*: Not Applicable *COPY OF PRESCRIPTION DRUG MONITORING REPORT IN PATIENT EMILIANO: Not Applicable Oxygen Therapy Mode: Room Air Referrals: [facility] [Ordering Only Provider] - - Discharge Summary/Plan Comment DC Time >30 min.: Yes - General Info Date of Service: 11/23/19 Admission Dx/Problem (Free Text: Bilateral lower extremity cellulitis Subjective Update: Patient seen and examined today. Overnight patient was having significant pain is legs especially the right leg. Right leg and foot is still swollen today. Had fever up to 102.2 overnight. Functional Status: Reports: Pain Controlled - Review of Systems General: Reports: Fever, Fatigue HEENT: Reports: No Symptoms Pulmonary: Reports: No Symptoms Cardiovascular: Reports: No Symptoms Gastrointestinal: Reports: No Symptoms Genitourinary: Reports: No Symptoms Musculoskeletal: Reports: Leg Pain, Foot Pain, Joint Pain, Joint Swelling Skin: Reports: Rash Neurological: Reports: No Symptoms Psychiatric: Reports: No Symptoms - Patient Data Vitals - Most Recent: Last Vital Signs Temp 99.8 F 11/23/19 11:43 Pulse 85 11/23/19 11:43 Resp 18 11/23/19 11:43 BP 146/87 H 11/23/19 11:43 Pulse Ox 97 11/23/19 11:43 Weight - Most Recent: 190 lb I&O - Last 24 hours: Intake & Output 11/23/19 11/23/19 11/23/19 06:59 14:59 22:59 Intake Total 3554 1065 Output Total 2150 1600 Balance 1404 -535 Lab Results - Last 24 hrs: Laboratory Results - last 24 hr 11/23/19 11/23/19 11/23/19 Range/Units 07:45 07:45 07:45 WBC 10.4 H (5.0-10.0) 10^3/uL RBC 4.54 L (4.6-6.2) 10^6/uL Hgb 13.7 L (14.0-18.0) g/dL Hct 41.7 (40.0-54.0) % MCV 91.9 (80-100) fL MCH 30.2 (27.0-34.0) pg MCHC 32.9 L (33.0-35.0) g/dL Plt Count 359 (150-450) 10^3/uL Sodium 135 L (136-145) mmol/L Potassium 4.0 (3.5-5.1) mmol/L Chloride 101 (98-107) mmol/L Carbon Dioxide 28 (21-32) mmol/L Anion Gap 10.0 (7-13) mEq/L BUN 12 (7-18) mg/dL Creatinine 0.88 (0.70-1.30) mg/dL Est Cr Clr Drug Dosing 110.53 mL/min Estimated GFR (MDRD) > 60 BUN/Creatinine Ratio 13.6 (No establ ref range) Glucose 94 (74-99) mg/dL Lactic Acid (0.4-2.0) mmol/L Calcium 8.0 L (8.5-10.1) mg/dL Total Bilirubin 0.6 (0.2-1.0) mg/dL AST 50 H (15-37) U/L ALT 85 H (16-63) U/L Alkaline Phosphatase 74 (46-116) U/L Total Protein 7.0 (6.4-8.2) g/dL Albumin 2.2 L (3.4-5.0) g/dL Globulin 4.8 Albumin/Globulin Ratio 0.46 Vancomycin Trough 11.9 (10.0-20.0) ug/mL 11/23/19 Range/Units 09:20 WBC (5.0-10.0) 10^3/uL RBC (4.6-6.2) 10^6/uL Hgb (14.0-18.0) g/dL Hct (40.0-54.0) % MCV (80-100) fL MCH (27.0-34.0) pg MCHC (33.0-35.0) g/dL Plt Count (150-450) 10^3/uL Sodium (136-145) mmol/L Potassium (3.5-5.1) mmol/L Chloride (98-107) mmol/L Carbon Dioxide (21-32) mmol/L Anion Gap (7-13) mEq/L BUN (7-18) mg/dL Creatinine (0.70-1.30) mg/dL Est Cr Clr Drug Dosing mL/min Estimated GFR (MDRD) BUN/Creatinine Ratio (No establ ref range) Glucose (74-99) mg/dL Lactic Acid 1.0 (0.4-2.0) mmol/L Calcium (8.5-10.1) mg/dL Total Bilirubin (0.2-1.0) mg/dL AST (15-37) U/L ALT (16-63) U/L Alkaline Phosphatase (46-116) U/L Total Protein (6.4-8.2) g/dL Albumin (3.4-5.0) g/dL Globulin Albumin/Globulin Ratio Vancomycin Trough (10.0-20.0) ug/mL TASHIA Results - Last 24 hrs: Microbiology 11/21/19 12:59 Aerobic Blood Culture - Preliminary Blood - Venous - Lab Draw NO GROWTH AFTER 2 DAYS Anaerobic Blood Culture - Preliminary NO GROWTH AFTER 2 DAYS 11/21/19 12:59 Aerobic Blood Culture - Preliminary Blood - Venous NO GROWTH AFTER 2 DAYS Anaerobic Blood Culture - Preliminary NO GROWTH AFTER 2 DAYS Med Orders - Current: Current Medications Acetaminophen (Tylenol) 650 mg PO Q4H PRN PRN Reason: Pain (Mild 1-3)/fever Last Admin: 11/22/19 20:39 Dose: 650 mg Documented by: Hydrocodone Bitart/Acetaminophen ([place] 325-10 Mg) 1 tab PO Q4H PRN PRN Reason: Pain (moderate 4-6) Last Admin: 11/23/19 13:34 Dose: 1 tab Documented by: Docusate Sodium (Colace) 100 mg PO BID PRN PRN Reason: Constipation Enoxaparin Sodium (Lovenox) 40 mg SUBCUT DAILY [facility] Last Admin: 11/23/19 09:05 Dose: 40 mg Documented by: Piperacillin Sod/Tazobactam (Sod 3.375 gm/ Sodium Chloride) 100 mls @ 200 mls/hr IV Q6HR [facility] Last Infusion: 11/23/19 13:40 Dose: Infused Documented by: Vancomycin HCl 1.25 gm/ Sodium (Chloride) 250 mls @ 166.667 mls/hr IV Q8H [facility] Last Admin: 11/23/19 16:32 Dose: 166 mls/hr Documented by: Ibuprofen (Motrin) 400 mg PO Q6H PRN PRN Reason: Pain (1-3)/Fever, use 2nd Last Admin: 11/23/19 12:58 Dose: 400 mg Documented by: Miscellaneous Information (Check Patch) 1 ea TRDERM BEDTIME [facility] Last Admin: 11/22/19 21:33 Dose: Not Given Documented by: Morphine Sulfate (Morphine) 4 mg IVPUSH Q4H PRN PRN Reason: Pain Last Admin: 11/23/19 13:40 Dose: 4 mg Documented by: Nicotine (Habitrol) 14 mg TRDERM DAILY [facility] Last Admin: 11/23/19 09:03 Dose: 14 mg Documented by: Ondansetron HCl (Zofran Odt) 4 mg PO Q4H PRN PRN Reason: nausea, able to take PO Last Admin: 11/21/19 16:24 Dose: 4 mg Documented by: Vancomycin HCl (Pharmacy To Dose - Vancomycin) 0 dose .XX ASDIRECTED [facility] Discontinued Medications Acetaminophen (Tylenol) 650 mg PO Q4H PRN PRN Reason: Pain (Mild 1-3)/fever Hydrocodone Bitart/Acetaminophen ([place] 325-10 Mg) 1 tab PO Q4H PRN PRN Reason: Pain (moderate 4-6) Docusate Sodium (Colace) 100 mg PO BID PRN PRN Reason: Constipation Enoxaparin Sodium (Lovenox) 40 mg SUBCUT DAILY [facility] Fentanyl (Sublimaze) 50 mcg IVPUSH ONETIME ONE Stop: 11/21/19 14:23 Last Admin: 11/21/19 14:37 Dose: 50 mcg Documented by: Ceftriaxone Sodium 1 gm/ (Sodium Chloride) 50 mls @ 100 mls/hr IV ONETIME ONE Stop: 11/21/19 14:52 Last Admin: 11/21/19 14:40 Dose: 100 mls/hr Documented by: Sodium Chloride (Normal Saline) 1,000 mls @ 999 mls/hr IV .BOLUS ONE Stop: 11/21/19 15:41 Last Admin: 11/21/19 14:43 Dose: 999 mls/hr Documented by: Sodium Chloride (Normal Saline) 1,000 mls @ 125 mls/hr IV ASDIRECTED [facility] Piperacillin Sod/Tazobactam (Sod 3.375 gm/ Sodium Chloride) 100 mls @ 200 mls/hr IV Q6H FARHANA Sodium Chloride (Normal Saline) 1,000 mls @ 125 mls/hr IV ASDIRECTED [facility] Last Admin: 11/22/19 23:34 Dose: 125 mls/hr Documented by: Morphine Sulfate (Morphine) 2 mg IVPUSH Q2H PRN PRN Reason: Pain (severe 7-10) Morphine Sulfate (Morphine) 2 mg IVPUSH Q2H PRN PRN Reason: Pain (severe 7-10) Last Admin: 11/21/19 20:50 Dose: 2 mg Documented by: Morphine Sulfate (Morphine) 2 mg IVPUSH ONETIME ONE Stop: 11/21/19 21:23 Last Admin: 11/21/19 21:30 Dose: 2 mg Documented by: Nicotine (Habitrol) 14 mg TRDERM DAILY [facility] Ondansetron HCl (Zofran Odt) 4 mg PO Q4H PRN PRN Reason: nausea, able to take PO Sodium Chloride (Saline Flush) 10 ml FLUSH ASDIRECTED PRN PRN Reason: Keep Vein Open Last Admin: 11/21/19 14:37 Dose: 10 ml Documented by: Vancomycin HCl (Pharmacy To Dose - Vancomycin) 1 dose .XX ASDIRECTED [facility] - Exam General: Reports: Alert, Oriented HEENT: Reports: Pupils Equal, Pupils Reactive, EOMI, Mucous Membr. Moist/[place]ck: Reports: Supple Lungs: Reports: Clear to Auscultation, Normal Respiratory Effort Cardiovascular: Reports: Regular Rate, Regular Rhythm GI/Abdominal Exam: Normal Bowel Sounds, Soft, Non-Tender, No Organomegaly, No Distention, No Abnormal Bruit, No Mass, Pelvis Stable Back Exam: Reports: Normal Inspection, Full Range of Motion Extremities: Other (Right foot and leg erythema, tenderness and edema spreading proximally. Foot erythema.) Skin: Reports: Warm, Rash Neurological: Reports: No New Focal Deficit Psy/Mental Status: Reports: Alert, Normal Affect, Normal Mood
[2019-11-23 17:13] VITALS: BP 143/85; PULSE 77
== END 2019-11-23 17:40 | DRG 549 ==
LOC: DL.ED 12:03 → DL.MS 15:24
PROVIDERS: ADMIT Internal Medicine; ATTEND Internal Medicine
DX: M00.9 Pyogenic arthritis, unspecified (principal); L03.116 Cellulitis of left lower limb; L03.115 Cellulitis of right lower limb; F17.210 Nicotine dependence, cigarettes, uncomplicated
CPT/HCPCS: 36415; 73630-LT; 73630-RT; 73718-RT; 80053; 80202; 83605; 85025; 85027; 87040; 94640; A9270-GY; J0696; J1650; J2270; J2543; J3010; J3370; J7030; J7050

== ENCOUNTER 2019-12-05 11:59 | Emergency (ER) | payer OTHER, MEDICAID ==
[2019-12-05 12:19] VITALS: BP 148/106; PULSE 87
[2019-12-05] MEDS ORDERED: Acetaminophen/HYDROcodone 325-10 MG Tab PO ONE (13:38)
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
== END 2019-12-05 13:49 | disposition home or self-care (01) ==
LOC: DL.ED 11:59
DX: G89.18 Other acute postprocedural pain (principal); M79.671 Pain in right foot; Z76.0 Encounter for issue of repeat prescription; F17.210 Nicotine dependence, cigarettes, uncomplicated
CPT/HCPCS: 99283; A9270

== ENCOUNTER 2020-06-21 00:53 | Emergency (ER) | payer MEDICAID, OTHER ==
[2020-06-21 01:44] VITALS: BP 131/75; PULSE 89
[2020-06-21 01:45] LABS: CORONAVIRUS COVID-19 NAA NEGATIVE (NEGATIVE)
[2020-06-21] MEDS ORDERED: Acetaminophen/HYDROcodone 325-10 MG Tab PO ONE (02:19)
[2020-06-21] MEDS ORDERED: Silver Sulfadiazine 1% Crm 50 GM Tube TOP ONE (02:19)
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
== END 2020-06-21 02:48 | disposition home or self-care (01) ==
LOC: DL.ED 00:53
DX: T23.272A Burn of second degree of left wrist, initial encounter (principal); Z72.0 Tobacco use; Z20.822 Contact with and (suspected) exposure to COVID-19; X19.XXXA Contact with other heat and hot substances, initial encounter
CPT/HCPCS: 0240U; 99283; A9270

== ENCOUNTER 2021-12-09 01:40 | Emergency (ER) | payer MEDICAID ==
[2022-01-03 10:13] LABS: ANION GAP 12.8 mEq/L (7-13); CHLORIDE,CL 104 mmol/L (98-107); SODIUM,NA 139 mmol/L (136-145)
[2022-01-03 10:14] LABS: ACETAMINOPHEN 0 ug/mL (10-30 (Therapeutic)); ESTIMATED GFR 105 mL/min (>=60)
[2022-01-03 10:17] LABS: AMPHETAMINES,URINE NEGATIVE (NEGATIVE); BARBITURATES,URINE NEGATIVE (NEGATIVE); BENZODIAZEPINE,URINE NEGATIVE (NEGATIVE); MDMA (ECSTASY), URINE NEGATIVE (NEGATIVE); METHADONE,URINE NEGATIVE (NEGATIVE); METHAMPHETAMINES,URINE NEGATIVE (NEGATIVE); OPIATES,URINE NEGATIVE (NEGATIVE); OXYCODONE,URINE NEGATIVE (NEGATIVE); PHENCYCLIDINE,URINE NEGATIVE (NEGATIVE); TCA,URINE NEGATIVE (NEGATIVE)
== END 2021-12-09 16:00 | disposition home or self-care (01) ==
LOC: DL.ED 01:40
DX: Z02.89 Encounter for other administrative examinations (principal)
CPT/HCPCS: 36415; 80053; 80143; 80179; 80305-QW; 80307; 81001; 83735; 84484; 85025; 93005; 99283

== ENCOUNTER 2021-12-10 05:10 | Emergency (ER) | payer MEDICAID | END 2021-12-10 18:06 | disposition home or self-care (01) | LOC: DL.ED 05:10 | DX: Z02.89 Encounter for other administrative examinations (principal) | CPT/HCPCS: 99283 ==

== ENCOUNTER 2021-12-17 22:36 | Emergency (ER) | payer MEDICAID ==
[2021-12-17 23:07] LABS: AMPHETAMINES,URINE NEGATIVE (NEGATIVE); BARBITURATES,URINE NEGATIVE (NEGATIVE); BENZODIAZEPINE,URINE NEGATIVE (NEGATIVE); MDMA (ECSTASY), URINE NEGATIVE (NEGATIVE); METHADONE,URINE NEGATIVE (NEGATIVE); METHAMPHETAMINES,URINE NEGATIVE (NEGATIVE); OPIATES,URINE NEGATIVE (NEGATIVE); OXYCODONE,URINE NEGATIVE (NEGATIVE); PHENCYCLIDINE,URINE NEGATIVE (NEGATIVE); TCA,URINE NEGATIVE (NEGATIVE)
[2021-12-17 23:24] LABS: ANION GAP 10.6 mEq/L (7-13); CHLORIDE,CL 106 mmol/L (98-107); SODIUM,NA 140 mmol/L (136-145)
[2021-12-17 23:27] LABS: ESTIMATED GFR 73 mL/min (>=60)
[2021-12-18 00:25] VITALS: BP 111/90; PULSE 100
== END 2021-12-18 00:20 | disposition home or self-care (01) ==
LOC: DL.ED 22:36
DX: F19.10 Other psychoactive substance abuse, uncomplicated (principal); I10 Essential (primary) hypertension; Z72.0 Tobacco use
CPT/HCPCS: 36415; 80053; 80305-QW; 80307; 81001; 84484; 85025; 93010; 99284

== ENCOUNTER 2022-03-14 11:53 | Emergency (ER) | payer MEDICAID ==
[2022-03-14] MEDS ORDERED: Amoxicillin/Clavulanate K 875-125 MG Tab PO ONE (11:54)
[2022-03-14] MEDS ORDERED: Doxycycline Monohydrate 100 MG Cap PO ONE (11:54)
[2022-03-14 12:29] VITALS: BP 147/90; PULSE 83
[2022-03-14] MEDS ORDERED: Phenazopyridine 95 MG Tab PO ONE (12:34)
[2022-03-14] MEDS ORDERED: cefTRIAXone 500 MG, Lidocaine 1% 1 ML IM ONE ×2 (13:24)
[2022-03-14] MEDS ORDERED: Doxycycline Monohydrate 100 MG Cap ONE (14:03)
[2022-03-14] MEDS ORDERED: Amoxicillin/Clavulanate K 875-125 MG Tab ONE (14:03)
[2022-03-18 13:46] LABS: C.TRACHOMATIS BY TMA Negative (Negative); N.GONORRHOEAE BY TMA Positive (Negative)
== END 2022-03-14 14:21 | disposition home or self-care (01) ==
LOC: DL.ED 11:53
DX: N30.00 Acute cystitis without hematuria (principal); I10 Essential (primary) hypertension; Z20.2 Contact with and (suspected) exposure to infections with a predominantly sexual mode of transmission
CPT/HCPCS: 81001; 87086; 87491; 87563; 87591; 96372; 99283; A9270; J0696; 36415

== ENCOUNTER 2022-04-07 21:53 | Emergency (ER) | payer MEDICAID ==
[2022-04-07 22:35] VITALS: BP 164/104; PULSE 78
== END 2022-04-07 23:11 | disposition home or self-care (01) ==
LOC: DL.ED 21:53
DX: I10 Essential (primary) hypertension (principal); F17.210 Nicotine dependence, cigarettes, uncomplicated
CPT/HCPCS: 99283

== ENCOUNTER 2024-12-02 08:20 | Emergency (ER) | payer MEDICAID ==
[2024-12-02 08:30] LABS: BASOPHILS PERCENT AUTO 0.2 % (0.0-1.0); EOSINOPHILS PERCENT AUTO 0.6 % (1.0-3.0); LYMPHOCYTES PERCENT AUTO 13.5 % (20.5-50.1); MONOCYTES PERCENT AUTO 7.4 % (2-8); NEUTROPHILS PERCENT AUTO 78.3 % (42.2-75.2); PLATELET COUNT,PLT 304 10^3/uL (150-450); RED BLOOD CELL COUNT 4.80 10^6/uL (4.6-6.2); WHITE BLOOD CELL COUNT,WBC 14.1 10^3/uL (5.0-10.0)
[2024-12-02] MEDS: Ondansetron 4 MG/2 ML SDV IVPUSH ONE (08:38)
[2024-12-02] MEDS: GI Cocktail Oral Solution 30 ML PO ONE (08:40)
[2024-12-02 08:52] LABS: A/G RATIO 0.9; ALANINE AMINOTRANSFERASE,ALT 28.0 U/L (16-63); ASPARTATE AMNIOTRANSFERASE,AST 15.0 U/L (15-37); BILIRUBIN TOTAL 0.6 mg/dL (0.2-1.0); BLOOD UREA NITROGEN,BUN 19.0 mg/dL (7-18); CARBON DIOXIDE,CO2 23.0 mmol/L (21-32); CHLORIDE,CL 106.0 mmol/L (98-107); CREATININE 1.2 mg/dL (0.70-1.30); EST CRCL DRUG DOSING (CG) 76.69 mL/min; GLUCOSE RANDOM 129.0 mg/dL (70-99); POTASSIUM,K 4.0 mmol/L (3.5-5.1); PROTEIN TOTAL,TP 8.2 g/dL (6.4-8.2); SODIUM,NA 143.0 mmol/L (136-145)
[2024-12-02 08:55] LABS: ESTIMATED GFR 73.0 mL/min (>=60)
[2024-12-02] MEDS: Iopamidol 755 Mg/ML 100 ML Bottle IVPUSH ONE (09:05)
[2024-12-02] MEDS: Lactated Ringers 1,000 ML IV SCH (09:27)
[2024-12-02 09:42] LABS: LACTIC ACID 2.3 mmol/L (0.4-2.0)
[2024-12-02 14:48] VITALS: BP 157/115; PULSE 79
== END 2024-12-02 14:02 ==
LOC: DL.ED 08:20
DX: K80.70 Calculus of gallbladder and bile duct without cholecystitis without obstruction (principal); I10 Essential (primary) hypertension; Z90.49 Acquired absence of other specified parts of digestive tract; Z79.899 Other long term (current) drug therapy
CPT/HCPCS: 36415; 74177; 76705; 80053; 83605; 83690; 84484; 85025; 93005; 93010; 96361; 96365; 96375; 96376; 99284; 99285; A9270; J1171; J2405; J2470; J2543; J7120; Q9967